=== PATIENT | male | born 2005 | race Caucasian/White ===

== ENCOUNTER 2025-10-24 13:01 | Outpatient (AMB) | payer OTHER, SELFPAY ==
--- NOTE | 2025-10-24 13:04 | MHC.PC.OV ---
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 Accompanied by: Mother Allergies No Known Allergies Allergy (Unverified 10/24/25 13:13) Medication List - Last Reconciled 10/24/25 by ANA M Guerra No Known Home Meds Tobacco use date assessed: 10/24/25 Dental Screening Dental Screen Date: 10/24/25 Did you have a dental visit in the last 12 months?: Yes Did you have a dental problem in the last 6 months where you did not have access to dental care?: No Was dental information given to patient?: Patient has dentist 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 He reports urinating 10-15 times per day, which requires him to stop frequently while driving. He denies any associated pain with urination. The patient also reports postprandial bowel movements, typically occurring 30 to 40 minutes after eating. This is associated with bloating and is triggered by certain foods, specifically spicy and greasy items like chicken. Per his mother, the patient has been experiencing significant anxiety and stress, leading to insomnia where he is awake all night. The patient has no significant past medical history and sees no specialists. His last physical was approximately one year ago with his advanced clinical specialist. His family history is notable for hyperthyroidism in his mother, father, and sister, as well as prostate cancer and cancer behind the eyeball in his paternal grandfather. Health Maintenance - Last physical exam was about a year ago. - Diet: Advised to increase water intake and decrease consumption of juice, particularly acidic orange juice, as well as greasy and spicy foods. - Counselled on trying the FODMAP diet to identify food triggers for gastrointestinal symptoms. Social History - Education: He is a college student studying criminal justice. - Employment: He enjoys working a lot. - Social Support: He has a supportive family and spends time with his girlfriend. - Substance use: He quit drinking coffee about three months ago. - Nutrition: He reports low water intake, drinking about two 16-ounce bottles a day, but consumes a lot of juice, especially orange juice (8-10 cups at work). - Stress/Mental Health: Reports having a lot of anxiety, which causes insomnia. Results HPI Comments History of Present Illness Details History of Present Illness The patient is a 20 year old male presenting to [facility] care and for evaluation of frequent urination. He reports urinating 10-15 times per day, which requires him to stop frequently while driving. He denies any associated pain with urination. The patient also reports postprandial bowel movements, typically occurring 30 to 40 minutes after eating. This is associated with bloating and is triggered by certain foods, specifically spicy and greasy items like chicken. Per his mother, the patient has been experiencing significant anxiety and stress, leading to insomnia where he is awake all night. The patient has no significant past medical history and sees no specialists. His last physical was approximately one year ago with his advanced clinical specialist. His family history is notable for hyperthyroidism in his mother, father, and sister, as well as prostate cancer and cancer behind the eyeball in his paternal grandfather. Health Maintenance - Last physical exam was about a year ago. - Diet: Advised to increase water intake and decrease consumption of juice, particularly acidic orange juice, as well as greasy and spicy foods. - Counselled on trying the FODMAP diet to identify food triggers for gastrointestinal symptoms. Social History - Education: He is a college student studying criminal justice. - Employment: He enjoys working a lot. - Social Support: He has a supportive family and spends time with his girlfriend. - Substance use: He quit drinking coffee about three months ago. - Nutrition: He reports low water intake, drinking about two 16-ounce bottles a day, but consumes a lot of juice, especially orange juice (8-10 cups at work). - Stress/Mental Health: Reports having a lot of anxiety, which causes insomnia. 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 1. Little interest or pleasure in doing things: several days 2. Feeling down, depressed, or hopeless: more than half the days 3. Trouble falling or staying asleep, or sleeping too much: nearly every day 4. Feeling tired or having little energy: several days 5. Poor appetite or overeating: several days 6. Feeling bad about yourself - or that you are a failure or have let yourself or your family down: several days 7. Trouble concentrating on things, such as reading the newspaper or watching television: several days 8. Moving or speaking so slowly that other people could have noticed. Or the opposite - being so fidgety or restless that you have been moving around a lot more than usual: more than half the days 9. Thoughts that you would be better off or of hurting yourself in some way: not at all Total score: 12 Depression Screening Interpretation: Positive Depression Screening Done: Yes 87147 - PHQ-9 Billing: Yes Source: Developed by Drs. Luis Miguel Terry, Mercedes Sutton, Mik Sharma and colleagues, with an educational christopher from [employer]. Thrive Questionnaire Date Thrive assessed: 10/24/25 I am a: Patient What is your living situation today?: I have a steady place to live Within the past 12 months, did the food you bought not last and you didn't have the money to get more?: Never true Within the past 12 months, did you worry whether your food would run out before you got money to buy more?: Never true Do you have trouble paying for medicines?: No Do you have trouble getting transportation to medical appointments?: No Do you have trouble paying your heating and electricity bill?: No Do you have trouble taking care of your child, family member or friend?: No Do you have trouble with day-to-day activities such as bathing, preparing meals, shopping, managing finances, etc.?: No Are you currently unemployed and looking for a job?: No Are you interested in more education?: Yes Please select the resources that you would like help with: None Currently or been in a relationship where the following occur: No concerns reported THRIVE Score: 0 AUDIT C Alcohol Use Questionnaire (AUDIT-C) 1. How often do you have a drink containing alcohol?: Never 3. How often do you have six or more drinks on one occasion?: Never Total Score: 0 NATASHA-7 AMB Questionnaire NATASHA-7 Date NATASHA - 7 assessed: 10/24/25 Feeling nervous, anxious, or on edge: 2 = More than half the days Not being able to stop or control worryin = More than half the days Worrying too much about different things: 2 = More than half the days Trouble relaxin = More than half the days Being so restless that it is hard to sit still: 2 = More than half the days Becoming easily annoyed or irritable: 1 = Several days Feeling afraid as if something awful might happen: 1 = Several days Total NATASHA-7 score (0-4 normal; 5-9 mild; 10-14 moderate; 15-21 severe): 12 Source: Developed by Drs. Luis Miguel Terry, Mercedes Sutton, Mik Sharma and colleagues, with an educational christopher from [employer]. NATASHA-7 Assessment Billing NATASHA-7 Assessment Tool: NATASHA-7 Assessment 73648 Review of Systems Const Reports difficulty sleeping (due to increased stress) and Denies headache(s) Eyes Denies loss of vision ENT Denies vertigo, Denies dizziness, Denies headache(s) and Denies sore throat Card Denies chest pain, Denies leg edema and Denies lightheadedness Resp Denies cough, Denies hemoptysis and Denies wheezing GI Denies abdominal pain, Denies melena, Reports bloating, Denies constipation, Reports heartburn (on and off), Denies diarrhea, Denies vomiting and Reports other (defecate 30-40 minutes after eating) Denies dysuria, Reports urinary frequency (about 15 times a day) and Denies urinary urgency Musc Denies arthralgias, Denies joint swelling, Denies numbness and Denies tingling Neuro Denies Abnormal speech present, Denies behavioral changes, Denies vertigo, Denies dizziness, Denies headache(s), Denies loss of vision, Denies memory loss, Denies numbness and Denies tingling Psych Reports anxiety, Denies behavioral changes, Denies depression, Denies memory loss, Denies panic attacks and Reports other (increased stress) Jim/Lymph Denies easy bleeding and Denies easy bruising Aller/Immun Denies wheezing Physical exam (Primary Care) Vital Signs: Last Vital Signs Temp 97.4 F 10/24/25 13:07 Pulse 83 10/24/25 13:07 BP 108/66 10/24/25 13:07 Pulse Ox 98 10/24/25 13:07 Oxygen Delivery Method Room Air 10/24/25 13:07 BMI result Body Mass Index 28.4 Tobacco/Smoking Status: Tobacco use Status Tobacco use date assessed 10/24/25 10/24/25 13:12 Patient Tobacco Use Status Never used Tobacco 10/24/25 13:12 e-Cigarette/Vaping Use Never Used 10/24/25 13:12 PHQ-9: PHQ-9 Score PHQ-9: Total score 12 10/24/25 13:12 Depression Screening Interpretation: Positive Thrive Assessment: Date of Thrive Assessment Date Thrive assessed 10/24/25 10/24/25 13:12 Currently or been in a relationship where the following occur: No concerns reported Const General: healthy appearing, no acute distress, alert and awake Nutritional Appearance: well nourished Orientation/consciousness: oriented to person, oriented to place and oriented to time HENMT Ears: TM's normal bilaterally General nose exam: Normal nasal mucous membranes and turbinates present Eyes Conjunctivae: conjunctivae normal Sclerae: sclerae normal Pupils: Equal, round and reactive pupils present Neck Neck: Yes no lymphadenopathy and Yes no JVD Thyroid: Thyroid normal Carotids: no bruits Resp Effort & Inspection: normal respiratory effort and not tachypneic Auscultation: no crackles, no rales, no rhonchi and no wheezes Cardio Rate: regular rate Rhythm: regular rhythm Heart sounds: no murmurs and normal S1 and S2 GI Palpation (GI): Soft to palpation, nontender, no hepatomegaly and no splenomegaly Auscultation: normal bowel sounds Skin General skin exam: no rashes or lesions noted and dry skin Neuro General: oriented to person, oriented to place and oriented to time Cranial nerves: Yes Equal, round and reactive pupils present Speech: No Abnormal speech present Gait exam (Neuro): Normal gait present Motor exam (neuro): no tremor noted Extrem Right upper extremity: full ROM Left upper extremity: full ROM Right lower extremity: full ROM; no edema Left lower extremity: full ROM; no edema Psych Mental Status: mental status grossly normal Speech and movement: Normal speech and movement present Affect: normal affect Attitude: cooperative Thought process: Normal thought process present Coding Level of Care Code New Pt Level 4 (12916) Diagnoses Polyuria R35.89 Heartburn R12 Psychophysiological insomnia F51.04 Insomnia type: psychophysiologic Anxiety F41.9 Additional Codes NATASHA-7 Assessment Billing - NATASHA-7 Assessment Tool: NATASHA-7 Assessment 42693 ([id number]) PHQ-9 - 19194 - PHQ-9 Billing: Yes ([id number]) Time Spent (min) 37 Assessment & Plan Assessment & Plan (1) Polyuria: Code(s): R35.89 - Other polyuria Category: Medical Plan: Frequent urination is a concerning symptom, possibly indicative of diabetes mellitus given the patient's high juice consumption. A urinalysis will be ordered to rule out infection, and fasting blood work will be done to check blood sugar levels. The patient was advised to get these tests done as soon as possible and to increase water intake while decreasing juice consumption. (2) Heartburn: Code(s): R12 - Heartburn Category: Medical Plan: The patient's abdominal symptoms, including postprandial bowel movements and bloating, are suggestive of acid reflux, potentially exacerbated by his intake of acidic orange juice, as well as greasy and spicy foods. His stress and anxiety may also be a contributing factor. The patient was advised to avoid trigger foods, eat more baked instead of fried foods, and was introduced to the FODMAP diet to help identify specific food sensitivities by eliminating and reintroducing foods. Additional tests for food sensitivities will also be ordered with his labs. (3) Insomnia: Code(s): G47.00 - Insomnia, unspecified Category: Medical Qualifiers: Insomnia type: psychophysiologic Qualified Code(s): F51.04 - Psychophysiologic insomnia Plan: The patient's mother reported that he experiences significant anxiety and stress, resulting in insomnia. These psychological stressors are likely contributing to his gastrointestinal symptoms as well. A referral will be placed for a counselor to help the patient develop coping strategies. The patient was encouraged to utilize his support system, manage stress with breaks and deep breathing, and was provided reassurance. (4) Anxiety: Code(s): F41.9 - Anxiety disorder, unspecified Category: Medical Plan: The patient's mother reported that he experiences significant anxiety and stress, resulting in insomnia. These psychological stressors are likely contributing to his gastrointestinal symptoms as well. A referral will be placed for a counselor to help the patient develop coping strategies. The patient was encouraged to utilize his support system, manage stress with breaks and deep breathing, and was provided reassurance. Plan Discussion Notes I discussed with the patient and his mother that his frequent urination is concerning and could be a sign of diabetes, especially given his high consumption of sugary juice. I explained that we would order fasting blood work and a urine test to investigate this promptly. We also talked about how his stomach upset after eating is likely related to acid reflux from acidic, greasy, or spicy foods, and potentially worsened by stress. I recommended dietary modifications, including reducing juice and trigger foods, and introduced the FODMAP diet as a tool to identify problematic foods. Regarding his anxiety and insomnia, I validated his stress as a normal part of his journey but recommended professional support. I will provide a referral for a counselor to help him develop coping strategies and encouraged him to lean on his family for support. I will have him follow up in seven weeks to review the results and discuss next steps, but I will contact him sooner if any urgent results arise. Patient Instructions - Get the ordered blood work and urine test done as soon as possible. You must fast for 8-12 hours before the blood test, meaning nothing to eat or drink except water or black coffee without sugar or cream. - Try to drink more water and less juice, especially orange juice. - Avoid or reduce eating greasy and spicy foods. Try to eat more baked foods instead of fried foods. - Look up the FODMAP Diet online. This can help you figure out which foods might be upsetting your stomach. - Our office will call you to set up an appointment with a counselor to talk about stress and anxiety. - Remember to take breaks, do deep breathing exercises, and talk to your supportive family when you feel stressed. - Schedule a follow-up appointment in seven weeks to go over your test results. We will call you sooner if there is anything important to discuss. Orders: Orders Complete Blood Count Auto Diff Today R10.9 - Unspecified abdominal pain, R35.0 - Frequency of micturition, Z00.00 - Encounter for general adult medical examination without abnormal findings UA CC w/rflx Micro + Cult Today R10.9 - Unspecified abdominal pain, R35.0 - Frequency of micturition, Z00.00 - Encounter for general adult medical examination without abnormal findings TSH reflex Free T4 Today R10.9 - Unspecified abdominal pain, R35.0 - Frequency of micturition, Z00.00 - Encounter for general adult medical examination without abnormal findings Vitamin D 25-OH Total Today R10.9 - Unspecified abdominal pain, R35.0 - Frequency of micturition, Z00.00 - Encounter for general adult medical examination without abnormal findings Syphilis Screen Today R35.89 - Other polyuria, Z11.3 - Encounter for screening for infections with a predominantly sexual mode of transmission HIV Ab/Ag Today R35.89 - Other polyuria, Z11.3 - Encounter for screening for infections with a predominantly sexual mode of transmission CT NG by PCR Urine Today R35.89 - Other polyuria, Z11.3 - Encounter for screening for infections with a predominantly sexual mode of transmission Hemoglobin A1c Today R10.9 - Unspecified abdominal pain, R35.0 - Frequency of micturition, Z00.00 - Encounter for general adult medical examination without abnormal findings Comprehensive [place]. Panel Fast Today R10.9 - Unspecified abdominal pain, R35.0 - Frequency of micturition, Z00.00 - Encounter for general adult medical examination without abnormal findings Lipid Panel Today R10.9 - Unspecified abdominal pain, R35.0 - Frequency of micturition, Z00.00 - Encounter for general adult medical examination without abnormal findings Transglutaminase Ab IgG Today R10.9 - Unspecified abdominal pain, R35.0 - Frequency of micturition, Z00.00 - Encounter for general adult medical examination without abnormal findings Lipase Today R10.9 - Unspecified abdominal pain, R35.0 - Frequency of micturition, Z00.00 - Encounter for general adult medical examination without abnormal findings Amylase Today R10.9 - Unspecified abdominal pain, R35.0 - Frequency of micturition, Z00.00 - Encounter for general adult medical examination without abnormal findings Referrals Counseling Referral F41.9 - Anxiety disorder, unspecified
[2025-10-24 13:07] VITALS: BP 108/66; PULSE 83; TEMP 36.3; O2SAT 98; BMI 28.4
--- OUTSIDE RECORDS SUMMARY | 2025-10-24 21:48 | XMS_ITS | Clinical Summary ---
Author Organization [facility] Address [address] [place] [id number] Phone Care Team Providers Care Casting Wheel Operator Helper Name Role Phone Erlinda Ham MD Primary Care Provider Allergies No known active allergies Medications loratadine (Claritin) 10 MG tabletIndications :Seasonal allergic rhinitis due to pollen Take 1 tablet (10 mg total) by mouth daily. 30 tablet 5 1 Active Additional Information Patient not taking.Reported on 10/20/2024 omeprazole 20 MG delayed-release capsuleIndication s:Gastroesophagea l reflux disease without esophagitis Take 1 capsule (20 mg total) by mouth daily. Take medicine one hour before eating. 90 capsule 2 Active Cholecalciferol (Vitamin D) 25 MCG (1000 UT) tabletIndications :Vitamin D insufficiency One dialy 90 tablet 2 3 Active Active Problems Patient Care Coordination No te Formatting of this note migh t be different from the original. Working with mom for + needs assessment. (mold in apartment) Problem Noted Date Diagnosed Date Allergic rhinoconjunctivitis of both eyes 2021 Overview (12/05/2021): Fall season is the worse. Sneezing and hives around pet dog also. Assessment & Plan (12/06/2021 4:29 PM EST): Recommend year round daily Long-acting antihistamine with either Claritin or Cetirizine and suggest adding Ketotifen eye gtts in the fall Chronic idiopathic constipation 12/02/2020 Overview (12/02/2020): dietary alteration during the pandemic isolation, and increased levels of stress and anxiety no doubt contributing. Increase fluids, fiber, vegetables Assessment & Plan (10/06/2023 9:45 AM EST): Dietary advice given - also to start miralax one scoop in one glass water daily Supportive care Assessment & Plan (12/06/2021 4:28 PM EST): Still problematic, but patient disinclined toward MiraLAX powder. Begin trial of docusate 100 mg twice daily, and encouraged him to increase plant intake and water. Mood disturbance 12/02/2020 Overview (12/06/2021): Mild anxiety endorsed today, with no self harming behavior or SI. Family aware and very supportive. Patient declines counseling support, anxiety self-management packet provided. Assessment & Plan (12/06/2021 4:27 PM EST): Pt with high level of current function and declines need for formal supports- follow Acne vulgaris 11/06/2018 Overview (2020): Mild- managed with 5% BP lotion BID Assessment & Plan (12/06/2021 4:28 PM EST): Pt happy with his current OTC product regimen- follow for now Assessment & Plan (12/01/2020 2:10 PM EST): Acne improved on his face, but problematic on back and shoulders- refill BP lotion for BID use. Elevated cholesterol 06/12/2018 Overview (11/30/2020): Maternal grandfather AK @ 52 yo 05/2018 : Normal EKG, Fasting lipids:TC 180H, TG 101H, LDL 117H, HDL 43L 08/2018: TChol 186, HDL 47- reassuring Cardiology consult with Dr Arriaza, plan repeat fasting lipids at 17 yrs, healthy lifestyle Resolved Problems Problem Noted Date Diagnosed Date Resolved Date Psychosocial stressors 12/02/202010/06 Overview (12/02/2020): family needs assessment positive today for housing safety concerns, and father indicating desire for assistance. Refer to RN health care aide team. Gastroesophageal reflux dise ase without esophagitis 12/02/2020 10/06/2023 Overview (01/10/2022): 11/2020 Symptoms improved with Famotidine 20 BID but recurrent, reported again at [facility] 11/2021 - Resolved on Omeprazole 20 mg Assessment & Plan (01/10/2022 6:35 PM EST): Plan total 9 days of PPI rx and then stop. If symptoms recurr will plan additional work up, (CBC, ESR, TTG/IGA, stool H pylori) pt/family to call PRN Assessment & Plan (12/05/2021 3:38 PM EST): Recurrent symptoms, with GERD- trial Omeprazole 20 mg QD Frequent urination 12/02/2020 Overview (12/02/2020): possibly related to new constipation, but rule out glucosuria or other urinary pathology Pectus carinatum 2020 10/06/2023 Overview (2020): Clinically asymptomatic, no other signs of Marfan's. Immunizations Immunization Administration Dates Next Due COVID-19 Pfizer, shimon-sucros e, 12+ years 12/05/2021 COVID-19 Vaccine Moderna, se asonal, 12+ years 10/20/2024 DTaP / Hep B / IPV 04/12/2005,02/11/2005, 005 DTaP 5 01/09/2009,05/08/2006 H1N1 02/19/2010 HPV Vaccine 9 Valent 05/14/2018,12/12/2016 Hep A, ped/adol 12/12/2016,12/07/2015 Hep B, ped/adol 2004 Hib (HbOC) 04/12/2005,02/11/2005,2004 Hib (PRP-T) 02/06/2006 IPV 01/09/2009 Influenza Split 09/15/2012 Influenza, injectable, MDCK, preservative free, quadrivalent 12/12/2016 Influenza, injectable, quadrivalent 12/07/2015 Influenza, injectable, quadr ivalent, preservative free 10/06/2023,12/05/2021,10/19/2020,07/22 Influenza, injectable, trivalent 01/09/2009,02/2007,10/25/2005 Influenza, injectable, triva lent, preservative free 10/20/2024 MMR 01/09/2009,10/25/2005 Meningococcal B Trumenba 10/20/2024,10/06/2023 Meningococcal Conj (Menactra) MCV4P 12/01/2020,0 12/07/2015 Pneumococcal Conjugate 02/06/2006,2004,02/11/2005,12/07 Tdap 12/07/2015 Varicella 01/09/2009,10/25/2005 Family History Medical History Relation Name Comments Autism Brother 2 Jarmel Chinchilla Anxiety disorder Father Vito Chinchilla Depression Father Vito Chinchilla Hyperlipidemia Father Vito Chinchilla Hypertension Father Vito Chinchilla Alcoholism Maternal Grandfather Diabetes Maternal Grandfather Heart disease (Premature) Maternal Grandfather Hyperlipidemia Maternal Grandfather Hypertension Maternal Grandfather Thrombophilia Maternal Grandfather Anxiety disorder Mother Iris De Souza Depression Mother Iris De Souza Relation Name Status Comments Brother 1 Kiorel Chinchilla Alive Brother 2 Jarmel Chinchilla Alive Cousin Cousin: Autism Father Vito Chinchilla Alive Father: Elev ated Cholesterol Maternal Grandfather Materna l grandfather: thrombophilia, AK @ age 52 Mother Iris De Souza Alive Mother: Migrain es Other No family histo ry of Sudden /AK under age 55, No family history of Strabismus/amblyopia, No family history of Developmental dislocation of hip, No family history of ADD/ADHD, No family history of Diabetes mellitus, No family history of Deafness, No family history of Seizure disorder, No family history of Obesity Paternal Grandfather Paterna l grandfather: Asthma Social History Tobacco Use Types Packs/Day Years Used Date Smoking Tobacco: Never Alcohol Use Standard Drinks/Week Comments Never 0 (1 standard drink = 0.6 oz pur e alcohol) Hunger/Food Answer Date Recorded In the last 12 months, did y ou or your family ever eat less than you felt you should because there wasn't enough money for food? No 10/20/2024 Stable Housing Answer Date Recorded Are you worried that in the next 2 months you may not have stable housing? No 10/20/2024 Transportation Concerns Answer Date Rec orded In the last 12 months, have you or your family ever had to go without healthcare because you didn't have a way to get there? No 10/20/2024 Hazards in Home Answer Date Recorded Think about the place you li ve. Do you have problems with any of the following? Pests (mice or roaches), mold, no/not working smoke detectors, water leaks, no window guards. No 2023 Financing Utilities Answer Date Recorde d In the last 12 months, has t he electric, gas, oil, or water company threatened to shut off your services in your home? No 10/20/2024 Safety at Home Answer Date Recorded Are you or your family worried about feeling saf e in your home? No 10/20/2024 Outside Support Answer Date Recorded Do you feel that you need mo re support from other people or programs to help you care for yourself or your family? No 10/20/2024 Understanding Health Concerns Answer Da te Recorded Do you need help understandi ng your or your child's healthcare needs (diagnosis, medications, plan, etc.)? No 10/20/2024 Financing Health Concerns Answer Date R ecorded In the last 12 months, was t here a time when your child needed to see a doctor or get medications or supplies but could not because of cost? No 10/20/2024 Missing School or Work Answer Date Srinivas rded Did you or your child miss s chool or work because of a health problem that could have been avoided? No 10/20/2024 Child Education Answer Date Recorded Do you have concerns about y our/your child's learning or behavior in school, preschool, or daycare? No 10/20/2024 Sex and Gender Information Value Date Recorded Sex Assigned at Male 10/06/2023 9:41 AM EST Legal Sex Male 4:45 PM EDT Gender Identity Male 10/06/2023 9:41 AM EST Sexual Orientation Straight 10/06/2023 9: 41 AM EST Last Filed Vital Signs Vital Sign Reading Time Taken Comments Blood Pressure 141/83 10/20/2024 10:40 AM EST Pulse 79 10/20/2024 10:40 AM EST Temperature 36.1 C (97 F) 01/09/2022 4:44 PM EST Respiratory Rate - - Oxygen Saturation - - Inhaled Oxygen Concentration - - Weight 83.1 kg (183 lb 3.2 oz) 10/20/2024 10:40 AM EST Height 169.9 cm (5' 6.9 ) 10/20/2024 10:40 AM ES T Body Mass Index 28.78 10/20/2024 10:40 AM EST Plan of Treatment Health Maintenance Due Date Last Done Comments Influenza Vaccines (#1) 2025 10/20/20 24, 10/06/2023, 12/05/2021, Additional history exists COVID-19 Vaccine (5 - 2024-2 6 season) 2025 10/20/2024, 12/05/2021, 04/04/2021, Additional history exists DTaP,Tdap,and Td Vaccines (7 - Td or Tdap) 12/07/2025 12/07/2015, 01/09/2009, 05/08/2006, Additional history exists Hepatitis B Vaccines Completed 04/12/2005, 02/11/2005, 2004, Additional history exists HIB Vaccines Completed 02/06/2006, 03/18, 02/11/2005, Additional history exists Pneumococcal Vaccine Completed 02/06/2006, 04/12/2005, 02/11/2005, Additional history exists IPV Vaccines Completed 01/09/2009, 03/18, 02/11/2005, Additional history exists MMR Vaccines Completed 01/09/2009, 10/25/2005 Varicella Vaccines Completed 01/09/2009, 10/25/2005 Hepatitis A Vaccines Completed 12/12/2016, 12/07/19 16 HPV Vaccines Completed 05/14/2018, 12/12/2016 Meningococcal Vaccine Completed 12/01/2020, 016 Men B Vaccine Completed 10/20/2024, 10/06/[address]23 [place] [address] [facility] NON PCC [facility] A[facility] Care Teams Casting Wheel Operator Helper Relationship Specialty Start Date End Date Erlinda Ham MD [address] [place] [id number] PCP - General Pediatrics 10/19/24
--- OUTSIDE RECORDS SUMMARY | 2025-10-24 21:48 | XMS_ITS | Encounter Summary ---
Author Organization [facility] Address [address] [place] [address] Phone Care Team Providers Care Almond Blancher Hand Name Role Phone Erlinda Ham MD Primary Care Provider [phone] Encounter Details Date Type Department Care Team (Late st Contact Info) Description 07/03/2017 Conversion Encounter [facility] [place] [address] [place] [address] Social History Tobacco Use Types Packs/Day Years Used Date Smoking Tobacco: Never Assessed Sex and Gender Information Value Date Recorded Sex Assigned at Male 10/06/2023 9:41 AM EST Legal Sex Male 4:45 PM EDT Gender Identity Male 10/06/2023 9:41 AM EST Sexual Orientation Straight 10/06/2023 9: 41 AM EST documented as of this encounter Plan of Treatment Not on file documented as of this encounter Visit Diagnoses Not on filedocumented in this encounter Care Teams Almond Blancher Hand Relationship Specialty Start Date End Date Erlinda Ham MD [address] [place] [address] PCP - General Pediatrics 10/19/24 documented as of this encounter
--- OUTSIDE RECORDS SUMMARY | 2025-10-24 21:48 | XMS_ITS | Encounter Summary ---
Author Organization [facility] Address [address] [place] [address] Phone Care Team Providers Care Supervisor [employer] Name Role Phone Erlinda Ham MD Primary Care Provider [phone] Encounter Details Date Type Department Care Team (Late st Contact Info) Description 03/24/2013 Documentation [facility] [place] Family Medicine [address] [place] [address] Family Medicine, Physician [address], [place] [id number] Social History Tobacco Use Types Packs/Day Years [...] on filedocumented in this encounter Care Teams Supervisor [employer] Relationship Specialty Start Date End Date Erlinda Ham MD [address] [place] [id number] PCP - General Pediatrics 10/19/24 documented as of this encounter
--- OUTSIDE RECORDS SUMMARY | 2025-10-24 21:48 | XMS_ITS | Encounter Summary ---
Author Organization [facility] Address [address] [place] [phone] Phone Care Team Providers Care Primary Special Education Teacher Name Role Phone Erlinda Ham MD Primary Care Provider + [phone] Reason for Visit * Reason Comments Med Refill Encounter Details Date Type Department Care Team ([facility] st Contact Info) Description 04/07/2022 Refill [facility] [place] [address] [place] [address] Annelise Coates MD [address] [facility] [place] [address] [place] [address] Gastroesophageal reflux disease without esophagitis Social History Tobacco Use Types Packs/Day Years Used Date Smoking Tobacco: Never Alcohol Use Standard Drinks/Week Comments Never 0 (1 standard drink = 0.6 oz pur e alcohol) Hunger/Food Answer Date Recorded In the last 12 months, did y ou or your family ever eat less than you felt you should because there wasn't enough money for food? No 12/05/2021 Stable Housing Answer Date Recorded Are you worried that in the next 2 months you may not have stable housing? No 12/05/2021 Transportation Concerns Answer Date Rec orded In the last 12 months, have you or your family ever had to go without healthcare because you didn't have a way to get there? No 12/05/2021 Hazards in Home Answer Date Recorded Think about the place you li ve. Do you have problems with any of the following? Pests (mice or roaches), mold, no/not working smoke detectors, water leaks, no window guards. No 2021 Financing Utilities Answer Date Recorde d In the last 12 months, has t he electric, gas, oil, or water company threatened to shut off your services in your home? No 12/05/2021 Safety at Home Answer Date Recorded Are you or your family worried about feeling saf e in your home? No 12/05/2021 Outside Support Answer Date Recorded Do you feel that you need mo re support from other people or programs to help you care for yourself or your family? No 12/05/2021 Understanding Health Concerns Answer Da te Recorded Do you need help understandi ng your or your child's healthcare needs (diagnosis, medications, plan, etc.)? No 12/05/2021 Financing Health Concerns Answer Date R ecorded In the last 12 months, was t here a time when your child needed to see a doctor or get medications or supplies but could not because of cost? No 12/05/2021 Missing School or Work Answer Date Srinivas rded Did you or your child miss s chool or work because of a health problem that could have been avoided? No 12/05/2021 Sex and Gender Information Value Date Recorded Sex Assigned at Male 10/06/2023 9:41 AM EST Legal Sex Male 4:45 PM EDT Gender Identity Male 10/06/2023 9:41 AM EST Sexual Orientation Straight 10/06/2023 9: 41 AM EST documented as of this encounter Miscellaneous Notes * Telephone Encounter - Annelise Coates MD - 04/10/2022 8:17 PM EDT Pt was to finish rx this month, so refill request denied. If symptoms recur off meds, will refill x30 -60 days to allow pt to book f/up appointment for additional GI workup. * Telephone Encounter - Millie Moreau RN - 04/08/2022 3:02 PM EDT Pharm requesting med refill of omeprazole 20mg. Last PE 12/05/21. documented in this encounter Plan of Treatment Not on file documented as of this encounter Visit Diagnoses Diagnosis Gastroesophageal reflux disease without esophagitis Esophageal reflux documented in this encounter Care Teams Primary Special Education Teacher Relationship Specialty Start Date End Date Erlinda Ham MD [address] [place] [address] PCP - General Pediatrics 10/19/24 documented as of this encounter
== END 2025-10-24 13:41 | disposition home or self-care (01) ==
LOC: HO.HMCH 13:02
DX: R12 Heartburn (principal); R35.89 Other polyuria; F51.04 Psychophysiologic insomnia; F41.9 Anxiety disorder, unspecified

== ENCOUNTER → 2025-10-24 13:01 | Outpatient (BNVA) | payer OTHER, SELFPAY | DX: R35.89 Other polyuria (principal); R12 Heartburn; F51.04 Psychophysiologic insomnia; F41.9 Anxiety disorder, unspecified; Z13.31 Encounter for screening for depression; Z13.39 Encounter for screening examination for other mental health and behavioral disorders | CPT/HCPCS: 96127; 99202 ==

== ENCOUNTER 2025-10-25 11:29 | Outpatient (REF) | payer OTHER, SELFPAY ==
[2025-10-25 11:43] LABS: MANUAL DIFF FLAG NO
[2025-10-25 12:31] LABS: Hematocrit 44.5 % (42.0-52.0); Hemoglobin 14.6 g/dl (14.0-18.0); Imm Gran Abs Auto 0.02 X10*3/uL (0.00-0.03); Imm Gran Pct Auto 0.3 % (0.0-0.4); Lymphocytes Absolute Auto 2.0 X10*3/uL (1.2-4.9); Mean Corpuscular HGB Conc 32.8 g/dl (31.0-36.0); Mean Corpuscular Hemoglobin 26.7 pg (27.0-33.0); Mean Corpuscular Volume 81.4 fL (80.0-98.0); NRBC Abs Auto 0.000 X10*3/uL (0.0-0.012); NRBC Pct Auto 0.0 /100WBC (0.0-0.2); Platelet Count 289 X10*3/uL (160-400); Red Blood Count 5.47 X10*6/uL (4.60-5.80); White Blood Count 5.8 X10*3/uL (4.8-10.8)
[2025-10-25 12:34] LABS: Appearance Urine Cloudy; Glucose Urine UA Negative (Negative); PH 6.0 (5.0-9.0); Specific Gravity - Urine 1.025 (1.005-1.025); UMIC TRIGGER UACC YES
[2025-10-25 13:03] LABS: Alanine Aminotransferase 55 U/L (0-40); Albumin Level 4.9 g/dL (3.5-5.0); Alkaline Phosphatase 91 U/L (39-117); Amylase 70 U/L (28-100); Anion Gap 9 (12-20); Aspartate Amino Transferase 33 U/L (5-37); Blood Urea Nitrogen 11 mg/dL (9-16); Calcium 9.5 mg/dL (8.4-10.2); Carbon Dioxide 28 mmol/L (22-29); Chloride 109 mmol/L (96-108); Cholesterol 176 mg/dL (<200); Estimated Glomerular Filt Rate > 60; HDL Cholesterol 31 mg/dL (>40); Lipase 24 U/L (8-78); Potassium 3.9 mmol/L (3.3-5.1); Sodium 142 mmol/L (135-145); Total Protein 8.1 g/dL (6.5-8.0); Triglycerides 261 mg/dL (<150)
[2025-10-25 15:03] LABS: CT PCR Urine NOT DETECTED (Not Detect.); NG PCR Urine NOT DETECTED (Not Detect.)
[2025-10-26 04:41] LABS: HIV Num 1 0.11 S/CO (0.00-0.99)
[2025-10-26 06:04] LABS: Syphilis Screen Nonreactive (Nonreactive)
[2025-10-27 08:59] LABS: Transglutaminase Ab IgG <1.0 U/mL
== END 2025-10-25 11:30 | disposition home or self-care (01) ==
LOC: HO.LAB 11:29
DX: Z00.00 Encounter for general adult medical examination without abnormal findings (principal); Z11.4 Encounter for screening for human immunodeficiency virus [HIV]; Z20.2 Contact with and (suspected) exposure to infections with a predominantly sexual mode of transmission; R10.9 Unspecified abdominal pain; R35.0 Frequency of micturition; R35.89 Other polyuria
CPT/HCPCS: 80053; 80061; 81001; 82150; 82306; 83036; 83690; 84443; 85025; 86364; 86780; 87389; 87491; 87591